=== PATIENT | male | born 1970 | race Caucasian/White ===

== ENCOUNTER 2020-11-06 03:05 | Inpatient (IN) | payer BC, OTHER ==
[2020-11-06] MEDS ORDERED: Lorazepam 2 MG/ML VIAL ONE ×3 (03:23→20:39)
[2020-11-06] MEDS ORDERED: methylPREDNISolone Sod Succ/PF 125 MG/2 ML VIAL ONE (03:32)
[2020-11-06] MEDS ORDERED: Acetaminophen 500 MG TAB ONE (03:40)
[2020-11-06] MEDS ORDERED: Ketamine 50 MG/ML (10ML VIAL) ONE (03:51)
[2020-11-06] MEDS ORDERED: Midazolam HCl 5 mg/ml Vial ONE (04:19)
[2020-11-06 04:48] LABS: Mean Corpuscular HGB CONC 31.2 g/dL (32.0-36.0); Mean Corpuscular Hemoglobin 30.1 pg (27.0-31.0); Mean Corpuscular Volume 96.6 fL (78.0-98.0); Mean Platelet Volume 9.3 fL (7.4-10.4); Platelet Count 313 thou/uL (130-400); RBC Distribution Width 12.3 % (11.5-14.5)
[2020-11-06 04:52] LABS: ALT (SGPT) 20 U/L (8-55); AST (SGOT) 23 U/L (5-34); Alcohol Less than 10 mg/dL (Less than 10); Alkaline Phosphatase 135 U/L (40-110); BUN (Urea Nitrogen) 24 mg/dL (8.9-20.6); Bilirubin, Total 0.4 mg/dL (0.2-1.2); Calc. Creatinine Clearance 0 mL/min (70-130); Calcium 8.9 mg/dL (7.8-10.44); Chloride 103 mmol/L (98-107); Potassium 4.8 mmol/L (3.5-5.1); Sodium 139 mmol/L (136-145)
[2020-11-06 04:53] LABS: Amphetamine Not Detected (NotDetected); Barbiturates Screen Not Detected (NotDetected); Benzodiazepine Screen Not Detected (NotDetected); Cocaine Metabolite Screen Not Detected (NotDetected); Methadone Not Detected (NotDetected); Methamphetamine Not Detected (NotDetected); Opiate Screen Not Detected (NotDetected); Oxycodone Screen Not Detected (NotDetected); Phencyclidine (PCP) Not Detected (NotDetected); THC/Cannabinoid Screen Not Detected (NotDetected); Tricyclic Screen Not Detected (NotDetected)
[2020-11-06 04:58] LABS: Carbon Dioxide Less than 8 mmol/L (22-29); Glucose 669 mg/dL (70-105)
[2020-11-06] MEDS ORDERED: Rocuronium Bromide 10 MG/ML (10ML VIAL) ONE (05:00)
[2020-11-06] MEDS ORDERED: Propofol 1,000 MG/100 ML VIAL IV ONE ×5 (05:02→22:56)
[2020-11-06 05:08] LABS: Band 2 % (5-11); Lymphocytes 13 % (21-51); MDiff Complete? YES; Monocytes 4 % (0-10); Neutrophil 81 % (42-75); Platelet Morphology Comment Appears Adequate; RBC Morphology Normal
[2020-11-06 05:14] LABS: Actual Bicarbonate (HCO3a) 3.5 mEq/L (22-28); Analyzer IN Cardio ER; CO2 Tension 27.7 mmHg (35.0-45.0); Carboxyhemoglobin (COHb) 0.1 gm% (0.0-3.0); Hemoglobin (Hb) 16.1 g/dL (14.0-18.0); O2 Tension (PaO2), arterial 213.4 mmHg (80.0-100.0); Potassium - ABG Lab 4.77 mmol/L (3.70-5.30)
[2020-11-06 05:15] LABS: Base Excess (BEa) -32.6 mEq/L (-2.0 to +3.0); Puncture Site LBA; pH, Arterial 6.72 (7.35-7.45)
[2020-11-06 05:16] LABS: ALV-art Gradient 179.775 mmHg (0-20)
[2020-11-06 05:22] LABS: Magnesium 2.5 mg/dL (1.6-2.6); Phosphorus 7.8 mg/dL (2.3-4.7)
[2020-11-06] MEDS ORDERED: Sodium Bicarb 50 MEQ/50 ML Abboject 8.4% SYRINGE ONE ×4 (05:26→05:31)
[2020-11-06] MEDS ORDERED: Sodium Bicarbonate 150 MEQ in Dextrose 5% in Water 850 ML IV SCH (05:45)
[2020-11-06] MEDS ORDERED: Vancomycin 1 GM/200 ML BAG ONE (06:20)
[2020-11-06] MEDS ORDERED: INSULIN REGULAR IN 0.9 % NACL 100 UNIT/100 ML BAG ONE ×5 (06:20→23:03)
[2020-11-06] MEDS ORDERED: Cefepime 2 GM VIAL ONE (06:20)
[2020-11-06] MEDS ORDERED: Insulin Regular 300 UNITS/3 ML VIAL ONE (06:20)
[2020-11-06] MEDS ORDERED: Dextrose 5 %-0.45 % NaCl 1,000 ML IV PRN (06:45)
[2020-11-06] MEDS ORDERED: Fentanyl CADD 100 ML IV SCH (06:45)
[2020-11-06] MEDS ORDERED: NS 0.9% w/ 20 MEQ KCL 1,000 ML IV PRN ×2 (06:45)
[2020-11-06] MEDS ORDERED: Electrolyte Replacement Protocol 1 EACH IVPB SCH (06:45)
[2020-11-06] MEDS ORDERED: Ondansetron PF 4 MG/2 ML Vial IVP PRN (06:45)
[2020-11-06] MEDS ORDERED: Sodium Chloride 0.9% 1,000 ML IV PRN ×4 (06:45)
[2020-11-06] MEDS ORDERED: Ventilator Sedation Protocol 1 EACH FS SCH (07:00)
[2020-11-06] MEDS ORDERED: hydrALAZINE 20 MG/ML VIAL SLOW IVP PRN (07:18)
[2020-11-06 07:27] LABS: BUN (Urea Nitrogen) 28 mg/dL (8.9-20.6); Calc. Creatinine Clearance 0 mL/min (70-130); Calcium 8.3 mg/dL (7.8-10.44); Chloride 100 mmol/L (98-107); Potassium 4.6 mmol/L (3.5-5.1); Sodium 144 mmol/L (136-145)
[2020-11-06 07:39] LABS: Carbon Dioxide Less than 8 mmol/L (22-29); Glucose 739 mg/dL (70-105); Lactic Acid 5.8 mmol/L (0.5-2.2)
[2020-11-06] MEDS ORDERED: metroNIDAZOLE 500 MG/100 ML BAG ONE (07:46)
[2020-11-06 07:49] LABS: Bacteria/HPF None Seen HPF (None Seen); Bilirubin Negative (Negative); Blood, Urine 2+ (Negative); Clarity Clear (Clear); Glucose, Urine (Dipstick) Greater than 1000 mg/dL (Negative); Ketone, Urine Greater than 150 mg/dL (Negative); Leukocyte Negative Leu/uL (Negative); Nitrite Negative (Negative); Protein, Urine (Dipstick) 30 mg/dL (Neg-Trace); RBC/HPF 0-3 HPF (0-3); Specific Gravity, Urine 1.019 (1.002-1.036); Squamous Epithelial None Seen HPF (0-3); Urobilinogen Normal mg/dL (Less than 2); WBC/HPF 0-3 HPF (0-3)
[2020-11-06] MEDS ORDERED: Enoxaparin Sodium 40 MG/0.4 ML SYRINGE ONE (08:42)
[2020-11-06] MEDS ORDERED: Dexamethasone 10 MG/ML VIAL ONE (08:42)
[2020-11-06] MEDS: Ascorbic Acid 500 mg Chewable Tablet PO SCH (08:50)
[2020-11-06] MEDS: Famotidine 20 MG TAB PO SCH ×2 (08:51→21:24)
[2020-11-06] MEDS: Dexamethasone 4 mg/ml Vial SLOW IVP SCH (08:51)
[2020-11-06] MEDS: Enoxaparin Sodium 40 MG/0.4 ML SYRINGE SC SCH (08:51)
[2020-11-06] MEDS: Zinc Sulfate 220 MG CAP PO SCH (08:51)
[2020-11-06] MEDS ORDERED: Norepinephrine 8 MG/0.9% NS 250 ML ONE ×2 (10:45→20:28)
[2020-11-06] MEDS: Norepinephrine 8 MG/0.9% NS 250 ML IVPB PRN ×2 (10:55→20:30)
[2020-11-06 11:17] LABS: Lactic Acid 2.8 mmol/L (0.5-2.2)
[2020-11-06 11:23] LABS: BUN (Urea Nitrogen) 33 mg/dL (8.9-20.6); Calc. Creatinine Clearance 0 mL/min (70-130); Calcium 7.8 mg/dL (7.8-10.44); Chloride 100 mmol/L (98-107); Sodium 141 mmol/L (136-145)
[2020-11-06 11:25] LABS: Glucose 753 mg/dL (70-105)
[2020-11-06 11:26] LABS: Glucose 723 mg/dL (70-105)
[2020-11-06 11:36] LABS: Carbon Dioxide Less than 8 mmol/L (22-29); Glucose 712 mg/dL (70-105); Glucose 791 mg/dL (70-105)
[2020-11-06 11:50] LABS: Actual Bicarbonate (HCO3a) 6.5 mEq/L (22-28); Analyzer IN Cardio ER; Base Excess (BEa) -20.6 mEq/L (-2.0 to +3.0); Calcium, Ionized (arterial) 1.13 mmol/L (1.12-1.30); Carboxyhemoglobin (COHb) 0.3 gm% (0.0-3.0); Hemoglobin (Hb) 14.6 g/dL (14.0-18.0); Potassium - ABG Lab 3.69 mmol/L (3.70-5.30)
[2020-11-06 11:55] LABS: CO2 Tension 19.9 mmHg (35.0-45.0); Puncture Site RRA; pH, Arterial 7.13 (7.35-7.45)
[2020-11-06 11:56] LABS: ALV-art Gradient 197.325 mmHg (0-20)
[2020-11-06] MEDS: Lorazepam 2 MG/ML VIAL SLOW IVP PRN ×2 (12:00→20:50)
[2020-11-06] MEDS ORDERED: fentaNYL Citrate/PF 2,000 MCG in Sodium Chloride 0.9% 60 ML IV SCH (12:15)
[2020-11-06] MEDS ORDERED: Propofol BOLUS 1,000 MG/100 ML VIAL IV PRN (12:15)
[2020-11-06] MEDS ORDERED: Fentanyl BOLUS 250 ML IVPB PRN (12:15)
[2020-11-06] MEDS ORDERED: DISCONTINUE PREVIOUS NARCOTIC PAIN MEDICATIONS AND BENZODIAZEPINES FS SCH (12:15)
[2020-11-06] MEDS ORDERED: Morphine 2 MG/ML VIAL SLOW IVP PRN (12:15)
[2020-11-06 13:21] LABS: Glucose 665 mg/dL (70-105)
[2020-11-06 13:47] LABS: Glucose 616 mg/dL (70-105)
[2020-11-06] MEDS ORDERED: Piperacillin/Tazobactam 4.5 GM in Sodium Chloride 0.9% 100 ML IVPB SCH (14:00)
[2020-11-06] MEDS ORDERED: Iopamidol-370 76% 500 ML 1 ML ONE (15:03)
[2020-11-06 15:10] LABS: Lactic Acid 1.6 mmol/L (0.5-2.2)
[2020-11-06 15:14] LABS: BUN (Urea Nitrogen) 30 mg/dL (8.9-20.6); Calc. Creatinine Clearance 0 mL/min (70-130); Calcium 7.9 mg/dL (7.8-10.44); Chloride 107 mmol/L (98-107); Glucose 520 mg/dL (70-105); Potassium 3.5 mmol/L (3.5-5.1); Sodium 144 mmol/L (136-145)
[2020-11-06 15:25] LABS: Albumin 3.3 g/dL (3.5-5.0); BUN (Urea Nitrogen) 32 mg/dL (8.9-20.6); BUN/Creatinine Ratio 10.36; Calc. Creatinine Clearance 0 mL/min (70-130); Carbon Dioxide Less than 8 mmol/L (22-29); Chloride 107 mmol/L (98-107); Glucose 519 mg/dL (70-105); Magnesium 2.3 mg/dL (1.6-2.6); Phosphorus 1.8 mg/dL (2.3-4.7); Potassium 3.5 mmol/L (3.5-5.1); Sodium 145 mmol/L (136-145)
[2020-11-06 15:26] LABS: Carbon Dioxide Less than 8 mmol/L (22-29)
[2020-11-06] MEDS ORDERED: Cefepime 1 GM VIAL ONE (17:27)
[2020-11-06] MEDS ORDERED: Potassium Phosphate 30 MMOL in Sodium Chloride 0.9% 250 ML 250 ML IVPB SCH (17:45)
[2020-11-06] MEDS: CEFEPIME HCL IN DEXTROSE 5 % 1 GM in Premix Bag 1 BAG IVPB SCH (17:55)
[2020-11-06] MEDS ORDERED: Cefepime 1 GM in Sodium Chloride 0.9% 100 ML IVPB SCH (18:00)
[2020-11-06] MEDS: Propofol 1,000 MG/100 ML VIAL IV PRN (19:35)
[2020-11-06 19:42] LABS: Lactic Acid 1.3 mmol/L (0.5-2.2)
[2020-11-06 19:57] LABS: Anion Gap 26 mmol/L (10-20); BUN (Urea Nitrogen) 30 mg/dL (8.9-20.6); BUN/Creatinine Ratio 11.24; Calc. Creatinine Clearance 0 mL/min (70-130); Calcium 7.9 mg/dL (7.8-10.44); Carbon Dioxide 10 mmol/L (22-29); Chloride 113 mmol/L (98-107); Glucose 323 mg/dL (70-105); Magnesium 2.2 mg/dL (1.6-2.6); Phosphorus Less than 1.0 mg/dL (2.3-4.7); Potassium 3.2 mmol/L (3.5-5.1); Sodium 146 mmol/L (136-145)
[2020-11-06] MEDS: HUMULIN R 100 UNITS in Sodium Chloride 0.9% 100 ML IVPB SCH ×2 (21:00→23:05)
[2020-11-06] MEDS ORDERED: Sterile Water 10 ML ONE (21:00)
[2020-11-06] MEDS ORDERED: Vecuronium 10 MG VIAL ONE (21:00)
[2020-11-06] MEDS: Cholecalciferol 1,000 UNITS (25 MCG) TAB PO SCH (21:17)
[2020-11-06] MEDS ORDERED: D5 1/2 NS w/20 mEq KCL 1,000 ML ONE (21:44)
[2020-11-06] MEDS: D5 1/2 NS w/20 mEq KCL 1,000 ML IV PRN (21:47)
[2020-11-06 23:21] LABS: Albumin 3.4 g/dL (3.5-5.0); Anion Gap 24 mmol/L (10-20); BUN (Urea Nitrogen) 30 mg/dL (8.9-20.6); BUN/Creatinine Ratio 11.11; Calc. Creatinine Clearance 50 mL/min (70-130); Calcium 8.3 mg/dL (7.8-10.44); Carbon Dioxide 14 mmol/L (22-29); Chloride 116 mmol/L (98-107); Glucose 268 mg/dL (70-105); Magnesium 2.2 mg/dL (1.6-2.6); Phosphorus 1.3 mg/dL (2.3-4.7); Potassium 3.4 mmol/L (3.5-5.1); Sodium 151 mmol/L (136-145)
[2020-11-07] MEDS: Vecuronium 10 MG VIAL IV SCH ×2 (01:06→01:08)
[2020-11-07] MEDS: Vancomycin 1.5 GRAM/300 ML BAG 1.5 GM in Premix Bag 1 BAG IVPB SCH (01:07)
[2020-11-07] MEDS: D5 1/2 NS w/20 mEq KCL 1,000 ML IV PRN ×3 (01:08→14:16)
[2020-11-07] MEDS: Propofol 1,000 MG/100 ML VIAL IV PRN ×4 (01:08→20:52)
[2020-11-07] MEDS: HUMULIN R 100 UNITS in Sodium Chloride 0.9% 100 ML IVPB SCH ×4 (01:08→13:44)
[2020-11-07 04:20] LABS: Albumin 2.8 g/dL (3.5-5.0); Anion Gap 12 mmol/L (10-20); BUN (Urea Nitrogen) 24 mg/dL (8.9-20.6); BUN/Creatinine Ratio 12.31; CRP (Inflammatory) 4.82 mg/dL (= or < 0.5); Calc. Creatinine Clearance 69 mL/min (70-130); Calcium 7.7 mg/dL (7.8-10.44); Carbon Dioxide 21 mmol/L (22-29); Chloride 117 mmol/L (98-107); Glucose 248 mg/dL (70-105); Magnesium 1.9 mg/dL (1.6-2.6); Phosphorus Less than 1.0 mg/dL (2.3-4.7); Potassium 2.8 mmol/L (3.5-5.1); Sodium 147 mmol/L (136-145)
[2020-11-07] MEDS ORDERED: Magnesium 2 GM/50 ML 2 GM in Premix Bag 1 BAG IVPB SCH ×2 (05:00→09:00)
[2020-11-07] MEDS ORDERED: Electrolyte Replacement Protocol 1 EACH IVPB SCH (05:00)
[2020-11-07 05:24] LABS: Band 3 % (5-11); Hemoglobin 13.2 g/dL (14.0-18.0); Lymphocytes 7 % (21-51); MDiff Complete? YES; Mean Corpuscular HGB CONC 34.4 g/dL (32.0-36.0); Mean Platelet Volume 8.3 fL (7.4-10.4); Monocytes 5 % (0-10); Neutrophil 85 % (42-75); Platelet Count 247 thou/uL (130-400); Platelet Morphology Comment Appears Decreased; RBC Distribution Width 12.3 % (11.5-14.5); RBC Morphology Normal; Red Blood Cell (RBC) Count 4.26 mill/uL (4.70-6.10); White Blood Cell (WBC) Count 13.5 thou/uL (4.8-10.8)
[2020-11-07] MEDS ORDERED: Potassium Phosphate 30 MMOL in Sodium Chloride 0.9% 250 ML 250 ML IVPB SCH (05:30)
[2020-11-07] MEDS: CEFEPIME HCL IN DEXTROSE 5 % 1 GM in Premix Bag 1 BAG IVPB SCH ×2 (05:40→17:48)
[2020-11-07] MEDS: Lorazepam 2 MG/ML VIAL SLOW IVP PRN (07:09)
[2020-11-07] MEDS ORDERED: Fentanyl CADD 100 ML ONE (08:04)
[2020-11-07 08:05] LABS: Albumin 2.8 g/dL (3.5-5.0); Anion Gap 13 mmol/L (10-20); BUN (Urea Nitrogen) 21 mg/dL (8.9-20.6); BUN/Creatinine Ratio 13.13; Calc. Creatinine Clearance 90 mL/min (70-130); Calcium 7.7 mg/dL (7.8-10.44); Carbon Dioxide 21 mmol/L (22-29); Chloride 118 mmol/L (98-107); Glucose 147 mg/dL (70-105); Phosphorus 1.9 mg/dL (2.3-4.7); Sodium 149 mmol/L (136-145)
[2020-11-07] MEDS: Ascorbic Acid 500 mg Chewable Tablet PO SCH (08:13)
[2020-11-07] MEDS: Zinc Sulfate 220 MG CAP PO SCH (08:13)
[2020-11-07] MEDS: Dexamethasone 4 mg/ml Vial SLOW IVP SCH (08:13)
[2020-11-07] MEDS: Famotidine 20 MG TAB PO SCH ×2 (08:13→20:51)
[2020-11-07] MEDS: Enoxaparin Sodium 40 MG/0.4 ML SYRINGE SC SCH (08:14)
[2020-11-07] MEDS ORDERED: Potassium Chloride 40 MEQ in Premix Bag 1 BAG IVPB SCH ×2 (08:15→09:30)
[2020-11-07 08:29] LABS: Actual Bicarbonate (HCO3a) 22.2 mEq/L (22-28); Base Excess (BEa) -2.1 mEq/L (-2.0 to +3.0); CO2 Tension 36.6 mmHg (35.0-45.0); Calcium, Ionized (arterial) 1.12 mmol/L (1.12-1.30); Carboxyhemoglobin (COHb) 0.8 gm% (0.0-3.0); Hemoglobin (Hb) 13.5 g/dL (14.0-18.0); O2 Tension (PaO2), arterial 88.4 mmHg (80.0-100.0); Potassium - ABG Lab 3.19 mmol/L (3.70-5.30)
[2020-11-07 08:46] LABS: Puncture Site RRA
[2020-11-07] MEDS ORDERED: fentaNYL Citrate/PF 2,000 MCG in Sodium Chloride 0.9% 60 ML IV PRN (09:10)
[2020-11-07] MEDS ORDERED: Dextrose 50% Abboject 50 ML SYRINGE ONE (10:17)
[2020-11-07 10:52] LABS: ALV-art Gradient 145.025 mmHg (0-20); Actual Bicarbonate (HCO3a) 21.8 mEq/L (22-28); Base Excess (BEa) -2.2 mEq/L (-2.0 to +3.0); CO2 Tension 35.1 mmHg (35.0-45.0); Calcium, Ionized (arterial) 1.08 mmol/L (1.12-1.30); Carboxyhemoglobin (COHb) 0.3 gm% (0.0-3.0); Hemoglobin (Hb) 13.8 g/dL (14.0-18.0); O2 Tension (PaO2), arterial 96.3 mmHg (80.0-100.0); Potassium - ABG Lab 3.98 mmol/L (3.70-5.30); Puncture Site RBA; pH, Arterial 7.41 (7.35-7.45)
[2020-11-07] MEDS ORDERED: Dextrose 50% Abboject 50 ML SYRINGE SLOW IVP SCH (11:00)
[2020-11-07] MEDS ORDERED: Dextrose 50% Abboject 50 ML SYRINGE IVP PRN (11:30)
[2020-11-07] MEDS ORDERED: Dextrose 5% in Water 1,000 ML IV PRN (11:30)
[2020-11-07 13:27] LABS: ALT (SGPT) 16 U/L (8-55); AST (SGOT) 19 U/L (5-34); Albumin 2.7 g/dL (3.5-5.0); Alkaline Phosphatase 80 U/L (40-110); Anion Gap 10 mmol/L (10-20); BUN (Urea Nitrogen) 18 mg/dL (8.9-20.6); Bilirubin, Total 0.3 mg/dL (0.2-1.2); Calc. Creatinine Clearance 96 mL/min (70-130); Calcium 7.5 mg/dL (7.8-10.44); Carbon Dioxide 24 mmol/L (22-29); Chloride 117 mmol/L (98-107); Globulin 2.4 g/dL (2.4-3.5); Glucose 264 mg/dL (70-105); Potassium 3.9 mmol/L (3.5-5.1); Protein, Total 5.1 g/dL (6.0-8.3); Sodium 147 mmol/L (136-145)
[2020-11-07] MEDS: NPH, Human Insulin Isophane 300 UNIT/3 ML VIAL SC SCH (17:49)
[2020-11-07] MEDS: Cholecalciferol 1,000 UNITS (25 MCG) TAB PO SCH (20:50)
[2020-11-08] MEDS: Vancomycin 1.5 GRAM/300 ML BAG 1.5 GM in Premix Bag 1 BAG IVPB SCH ×2 (00:07→13:22)
[2020-11-08] MEDS: Propofol 1,000 MG/100 ML VIAL IV PRN ×2 (00:08→04:18)
[2020-11-08] MEDS: NPH, Human Insulin Isophane 300 UNIT/3 ML VIAL SC SCH ×5 (00:08→22:20)
[2020-11-08 00:15] LABS: Vancomycin, Trough 5.7 ug/mL
[2020-11-08] MEDS ORDERED: Fentanyl CADD 100 ML ONE (01:03)
[2020-11-08 04:52] LABS: Band 6 % (5-11); Hemoglobin 12.8 g/dL (14.0-18.0); Hypochromia SLIGHT = 6-15 cells (100X) (0-5/hpf); Lymphocytes 8 % (21-51); MDiff Complete? YES; Mean Corpuscular HGB CONC 33.2 g/dL (32.0-36.0); Mean Corpuscular Hemoglobin 30.1 pg (27.0-31.0); Mean Corpuscular Volume 90.8 fL (78.0-98.0); Mean Platelet Volume 8.4 fL (7.4-10.4); Monocytes 4 % (0-10); Neutrophil 82 % (42-75); Platelet Count 187 thou/uL (130-400); Platelet Morphology Comment Appears Adequate; RBC Distribution Width 12.6 % (11.5-14.5); Red Blood Cell (RBC) Count 4.24 mill/uL (4.70-6.10); White Blood Cell (WBC) Count 10.6 thou/uL (4.8-10.8)
[2020-11-08 04:55] LABS: ALT (SGPT) 16 U/L (8-55); AST (SGOT) 18 U/L (5-34); Albumin 2.7 g/dL (3.5-5.0); Alkaline Phosphatase 98 U/L (40-110); Anion Gap 13 mmol/L (10-20); BUN (Urea Nitrogen) 20 mg/dL (8.9-20.6); Bilirubin, Total 0.5 mg/dL (0.2-1.2); Calc. Creatinine Clearance 129 mL/min (70-130); Calcium 7.7 mg/dL (7.8-10.44); Carbon Dioxide 23 mmol/L (22-29); Chloride 115 mmol/L (98-107); Globulin 2.7 g/dL (2.4-3.5); Glucose 299 mg/dL (70-105); Magnesium 2.3 mg/dL (1.6-2.6); Potassium 3.9 mmol/L (3.5-5.1); Protein, Total 5.4 g/dL (6.0-8.3); Sodium 147 mmol/L (136-145)
[2020-11-08] MEDS: HumaLOG 300 UNITS/3 ML VIAL SC PRN ×5 (05:20→22:23)
[2020-11-08] MEDS: CEFEPIME HCL IN DEXTROSE 5 % 1 GM in Premix Bag 1 BAG IVPB SCH ×2 (05:21→17:02)
[2020-11-08 08:31] LABS: Actual Bicarbonate (HCO3a) 23.9 mEq/L (22-28); Base Excess (BEa) -0.4 mEq/L (-2.0 to +3.0); CO2 Tension 38.2 mmHg (35.0-45.0); Calcium, Ionized (arterial) 1.08 mmol/L (1.12-1.30); Carboxyhemoglobin (COHb) 0.7 gm% (0.0-3.0); Hemoglobin (Hb) 13.6 g/dL (14.0-18.0); O2 Tension (PaO2), arterial 101.7 mmHg (80.0-100.0); Potassium - ABG Lab 3.74 mmol/L (3.70-5.30); pH, Arterial 7.42 (7.35-7.45)
[2020-11-08 08:32] LABS: Puncture Site RRA
[2020-11-08] MEDS: Enoxaparin Sodium 40 MG/0.4 ML SYRINGE SC SCH (08:39)
[2020-11-08] MEDS: Famotidine 20 MG TAB PO SCH ×2 (08:39→22:15)
[2020-11-08] MEDS: Zinc Sulfate 220 MG CAP PO SCH (08:39)
[2020-11-08] MEDS: Dexamethasone 4 mg/ml Vial SLOW IVP SCH (08:39)
[2020-11-08] MEDS: Ascorbic Acid 500 mg Chewable Tablet PO SCH (08:39)
[2020-11-08] MEDS ORDERED: Sodium Chloride 0.45% 1,000 ML IV SCH (08:45)
[2020-11-08] MEDS: Cholecalciferol 1,000 UNITS (25 MCG) TAB PO SCH (22:15)
[2020-11-09] MEDS: Acetaminophen 325 MG TAB PO PRN ×2 (00:37→08:48)
[2020-11-09] MEDS: Vancomycin 1.5 GRAM/300 ML BAG 1.5 GM in Premix Bag 1 BAG IVPB SCH ×2 (00:38→14:00)
[2020-11-09] MEDS: HumaLOG 300 UNITS/3 ML VIAL SC PRN ×3 (06:30→16:48)
[2020-11-09 06:53] LABS: Hemoglobin 12.9 g/dL (14.0-18.0); Mean Corpuscular HGB CONC 33.8 g/dL (32.0-36.0); Mean Corpuscular Hemoglobin 30.8 pg (27.0-31.0); Mean Corpuscular Volume 91.1 fL (78.0-98.0); Mean Platelet Volume 8.3 fL (7.4-10.4); Platelet Count 167 thou/uL (130-400); RBC Distribution Width 12.3 % (11.5-14.5); Red Blood Cell (RBC) Count 4.19 mill/uL (4.70-6.10); White Blood Cell (WBC) Count 8.4 thou/uL (4.8-10.8)
[2020-11-09 07:15] LABS: ALT (SGPT) 15 U/L (8-55); AST (SGOT) 15 U/L (5-34); Albumin 2.7 g/dL (3.5-5.0); Alkaline Phosphatase 106 U/L (40-110); Anion Gap 11 mmol/L (10-20); BUN (Urea Nitrogen) 18 mg/dL (8.9-20.6); Bilirubin, Total 0.8 mg/dL (0.2-1.2); Calc. Creatinine Clearance 194 mL/min (70-130); Calcium 7.8 mg/dL (7.8-10.44); Carbon Dioxide 24 mmol/L (22-29); Chloride 110 mmol/L (98-107); Globulin 2.8 g/dL (2.4-3.5); Glucose 207 mg/dL (70-105); Magnesium 1.9 mg/dL (1.6-2.6); Phosphorus 3.1 mg/dL (2.3-4.7); Potassium 3.9 mmol/L (3.5-5.1); Protein, Total 5.5 g/dL (6.0-8.3); Sodium 141 mmol/L (136-145)
[2020-11-09 07:28] LABS: Band 11 % (5-11); Lymphocytes 9 % (21-51); MDiff Complete? YES; Monocytes 4 % (0-10); Neutrophil 76 % (42-75); Platelet Morphology Comment Appears Adequate; RBC Morphology Normal
[2020-11-09] MEDS ORDERED: Magnesium 2 GM/50 ML 2 GM in Premix Bag 1 BAG IVPB SCH (08:00)
[2020-11-09] MEDS: CEFEPIME HCL IN DEXTROSE 5 % 1 GM in Premix Bag 1 BAG IVPB SCH ×2 (08:02→21:41)
[2020-11-09] MEDS: NPH, Human Insulin Isophane 300 UNIT/3 ML VIAL SC SCH (08:07)
[2020-11-09] MEDS ORDERED: hydrALAZINE 20 MG/ML VIAL SLOW IVP SCH (08:45)
[2020-11-09] MEDS ORDERED: Amlodipine 5 MG TAB PO SCH (08:45)
[2020-11-09] MEDS: Enoxaparin Sodium 40 MG/0.4 ML SYRINGE SC SCH (08:48)
[2020-11-09] MEDS: Ascorbic Acid 500 mg Chewable Tablet PO SCH (08:49)
[2020-11-09] MEDS: Dexamethasone 4 mg/ml Vial SLOW IVP SCH (08:49)
[2020-11-09] MEDS: Famotidine 20 MG TAB PO SCH ×2 (08:49→21:42)
[2020-11-09] MEDS: Zinc Sulfate 220 MG CAP PO SCH (08:49)
[2020-11-09] MEDS ORDERED: Lisinopril 5 MG TAB PO SCH (09:00)
[2020-11-09] MEDS ORDERED: Lisinopril 10 MG TAB PO SCH (09:00)
[2020-11-09] MEDS ORDERED: Amlodipine 10 MG TAB PO SCH (09:00)
[2020-11-09] MEDS: Carvedilol 6.25 MG TAB PO SCH ×2 (09:53→16:48)
[2020-11-09] MEDS: Hydrochlorothiazide 25 MG TAB PO SCH (09:53)
[2020-11-09] MEDS: HumaLOG 300 UNITS/3 ML VIAL SC SCH ×2 (11:50→16:47)
[2020-11-09] MEDS: Amlodipine 5 MG TAB PO SCH ×4 (11:51→12:26)
[2020-11-09 12:34] LABS: Vancomycin, Trough 10.1 ug/mL
[2020-11-09] MEDS: VANCOMYCIN 1.75 GM/350 ML BAG 1.75 GM in Premix Bag 1 BAG IVPB SCH (14:14)
[2020-11-09] MEDS: Benzonatate 100 MG CAP PO PRN (21:42)
[2020-11-09] MEDS: Cholecalciferol 1,000 UNITS (25 MCG) TAB PO SCH (21:42)
[2020-11-09] MEDS: Lantus 1000 UNITS/10 ML VIAL SC SCH (22:44)
[2020-11-10] MEDS: VANCOMYCIN 1.75 GM/350 ML BAG 1.75 GM in Premix Bag 1 BAG IVPB SCH ×2 (00:53→13:08)
[2020-11-10] MEDS: Guaifenesin DM 100-10/5 ML UDCUP PO PRN ×4 (06:41→19:28)
[2020-11-10 07:05] LABS: #Lymphocytes 1.5 thou/uL (1.20-3.40); #Monocytes 0.9 thou/uL (0.11-0.59); #Neutrophils 10.4 thou/uL (1.40-6.50); %Basophils 0.1 % (0.0-1.0); %Eosinophils 0.1 % (0.0-10.0); %Lymphocytes 11.7 % (21.0-51.0); %Monocytes 7.1 % (0.0-10.0); Hemoglobin 14.4 g/dL (14.0-18.0); Mean Corpuscular HGB CONC 33.8 g/dL (32.0-36.0); Mean Corpuscular Hemoglobin 30.7 pg (27.0-31.0); Mean Corpuscular Volume 90.8 fL (78.0-98.0); Platelet Count 180 thou/uL (130-400); RBC Distribution Width 11.9 % (11.5-14.5); White Blood Cell (WBC) Count 12.9 thou/uL (4.8-10.8)
[2020-11-10 07:19] LABS: Phosphorus 2.9 mg/dL (2.3-4.7)
[2020-11-10 07:26] LABS: ALT (SGPT) 17 U/L (8-55); AST (SGOT) 17 U/L (5-34); Albumin 3.1 g/dL (3.5-5.0); Alkaline Phosphatase 135 U/L (40-110); Anion Gap 17 mmol/L (10-20); BUN (Urea Nitrogen) 14 mg/dL (8.9-20.6); Calc. Creatinine Clearance 200 mL/min (70-130); Calcium 8.5 mg/dL (7.8-10.44); Carbon Dioxide 22 mmol/L (22-29); Chloride 102 mmol/L (98-107); Globulin 3.2 g/dL (2.4-3.5); Glucose 237 mg/dL (70-105); Magnesium 1.8 mg/dL (1.6-2.6); Potassium 3.5 mmol/L (3.5-5.1); Protein, Total 6.3 g/dL (6.0-8.3); Sodium 137 mmol/L (136-145)
[2020-11-10] MEDS: Hydrochlorothiazide 25 MG TAB PO SCH (09:29)
[2020-11-10] MEDS: Enoxaparin Sodium 40 MG/0.4 ML SYRINGE SC SCH (09:29)
[2020-11-10] MEDS: CEFEPIME HCL IN DEXTROSE 5 % 1 GM in Premix Bag 1 BAG IVPB SCH ×2 (09:29→22:25)
[2020-11-10] MEDS: Ascorbic Acid 500 mg Chewable Tablet PO SCH (09:29)
[2020-11-10] MEDS: Carvedilol 6.25 MG TAB PO SCH ×2 (09:30→17:29)
[2020-11-10] MEDS: Amlodipine 10 MG TAB PO SCH (09:30)
[2020-11-10] MEDS: Dexamethasone 4 mg/ml Vial SLOW IVP SCH (09:30)
[2020-11-10] MEDS: Famotidine 20 MG TAB PO SCH ×2 (09:30→22:25)
[2020-11-10] MEDS: Zinc Sulfate 220 MG CAP PO SCH (09:30)
[2020-11-10] MEDS: HumaLOG 300 UNITS/3 ML VIAL SC SCH ×3 (09:31→17:29)
[2020-11-10] MEDS ORDERED: Magnesium 2 GM/50 ML 2 GM in Premix Bag 1 BAG IVPB SCH (10:30)
[2020-11-10] MEDS ORDERED: Potassium Chloride 20 MEQ TAB PO SCH (10:30)
[2020-11-10] MEDS: Acetaminophen 325 MG TAB PO PRN ×2 (12:16→19:47)
[2020-11-10] MEDS: HumaLOG 300 UNITS/3 ML VIAL SC PRN ×2 (12:17→17:29)
[2020-11-10] MEDS: Benzonatate 100 MG CAP PO PRN ×2 (12:17→22:44)
[2020-11-10] MEDS: Cholecalciferol 1,000 UNITS (25 MCG) TAB PO SCH (22:25)
[2020-11-10] MEDS: Lantus 1000 UNITS/10 ML VIAL SC SCH (22:28)
[2020-11-11 01:43] LABS: Vancomycin, Trough 7.1 ug/mL
[2020-11-11] MEDS: VANCOMYCIN 1.75 GM/350 ML BAG 1.75 GM in Premix Bag 1 BAG IVPB SCH ×2 (01:53→12:05)
[2020-11-11 05:26] LABS: #Lymphocytes 1.4 thou/uL (1.20-3.40); #Monocytes 1.1 thou/uL (0.11-0.59); #Neutrophils 8.3 thou/uL (1.40-6.50); %Basophils 0.2 % (0.0-1.0); %Eosinophils 0.2 % (0.0-10.0); %Lymphocytes 13.1 % (21.0-51.0); %Monocytes 10.2 % (0.0-10.0); %Neutrophils 76.3 % (42.0-75.0); Hemoglobin 13.9 g/dL (14.0-18.0); Mean Corpuscular HGB CONC 33.8 g/dL (32.0-36.0); Mean Corpuscular Hemoglobin 30.6 pg (27.0-31.0); Mean Corpuscular Volume 90.5 fL (78.0-98.0); Platelet Count 169 thou/uL (130-400); RBC Distribution Width 11.8 % (11.5-14.5); Red Blood Cell (RBC) Count 4.55 mill/uL (4.70-6.10); White Blood Cell (WBC) Count 10.9 thou/uL (4.8-10.8)
[2020-11-11 05:54] LABS: ALT (SGPT) 15 U/L (8-55); AST (SGOT) 14 U/L (5-34); Albumin 2.9 g/dL (3.5-5.0); Alkaline Phosphatase 123 U/L (40-110); Anion Gap 19 mmol/L (10-20); BUN (Urea Nitrogen) 13 mg/dL (8.9-20.6); Bilirubin, Total 0.7 mg/dL (0.2-1.2); Calc. Creatinine Clearance 200 mL/min (70-130); Calcium 8.4 mg/dL (7.8-10.44); Carbon Dioxide 20 mmol/L (22-29); Chloride 101 mmol/L (98-107); Globulin 3.4 g/dL (2.4-3.5); Glucose 209 mg/dL (70-105); Potassium 3.8 mmol/L (3.5-5.1); Protein, Total 6.3 g/dL (6.0-8.3); Sodium 136 mmol/L (136-145)
[2020-11-11] MEDS: Enoxaparin Sodium 40 MG/0.4 ML SYRINGE SC SCH (08:55)
[2020-11-11] MEDS: CEFEPIME HCL IN DEXTROSE 5 % 1 GM in Premix Bag 1 BAG IVPB SCH (08:55)
[2020-11-11] MEDS: Hydrochlorothiazide 25 MG TAB PO SCH (08:56)
[2020-11-11] MEDS: Zinc Sulfate 220 MG CAP PO SCH (08:56)
[2020-11-11] MEDS: Famotidine 20 MG TAB PO SCH ×2 (08:56→21:13)
[2020-11-11] MEDS: Carvedilol 6.25 MG TAB PO SCH ×2 (08:56→16:55)
[2020-11-11] MEDS: Dexamethasone 4 MG TAB PO SCH (08:56)
[2020-11-11] MEDS: Ascorbic Acid 500 mg Chewable Tablet PO SCH (08:56)
[2020-11-11] MEDS: Amlodipine 10 MG TAB PO SCH (08:56)
[2020-11-11] MEDS: Benzonatate 100 MG CAP PO PRN ×2 (08:57→16:54)
[2020-11-11] MEDS: HumaLOG 300 UNITS/3 ML VIAL SC SCH ×3 (08:57→16:55)
[2020-11-11] MEDS: Acetaminophen 325 MG TAB PO PRN ×3 (09:20→21:34)
[2020-11-11] MEDS: HumaLOG 300 UNITS/3 ML VIAL SC PRN ×3 (12:06→21:21)
[2020-11-11] MEDS: Chloraseptic Spray 180 ml Bottle PO PRN (16:58)
[2020-11-11] MEDS: Guaifenesin DM 100-10/5 ML UDCUP PO PRN ×2 (17:50→21:21)
[2020-11-11] MEDS: Lantus 1000 UNITS/10 ML VIAL SC SCH (21:13)
[2020-11-11] MEDS: Cholecalciferol 1,000 UNITS (25 MCG) TAB PO SCH (21:13)
[2020-11-11] MEDS: Ammonium Lactate 12% Lotion 225 GM BOT TOP SCH ×2 (21:26→21:33)
[2020-11-12] MEDS: hydrALAZINE 25 MG TAB PO PRN ×2 (00:22→08:46)
[2020-11-12] MEDS: Guaifenesin DM 100-10/5 ML UDCUP PO PRN ×3 (02:15→20:39)
[2020-11-12] MEDS: HumaLOG 300 UNITS/3 ML VIAL SC PRN ×4 (05:24→20:36)
[2020-11-12] MEDS: Benzonatate 100 MG CAP PO PRN ×2 (05:24→16:14)
[2020-11-12] MEDS: Acetaminophen 325 MG TAB PO PRN ×3 (05:24→18:16)
[2020-11-12] MEDS: Enoxaparin Sodium 40 MG/0.4 ML SYRINGE SC SCH (08:45)
[2020-11-12] MEDS: Zinc Sulfate 220 MG CAP PO SCH (08:46)
[2020-11-12] MEDS: Carvedilol 6.25 MG TAB PO SCH ×2 (08:46→16:23)
[2020-11-12] MEDS: Amlodipine 10 MG TAB PO SCH (08:46)
[2020-11-12] MEDS: Hydrochlorothiazide 25 MG TAB PO SCH (08:46)
[2020-11-12] MEDS: Ascorbic Acid 500 mg Chewable Tablet PO SCH (08:46)
[2020-11-12] MEDS: Dexamethasone 4 MG TAB PO SCH (08:47)
[2020-11-12] MEDS: Famotidine 20 MG TAB PO SCH ×2 (08:47→20:32)
[2020-11-12] MEDS: Ammonium Lactate 12% Lotion 225 GM BOT TOP SCH ×2 (08:47→20:33)
[2020-11-12] MEDS: HumaLOG 300 UNITS/3 ML VIAL SC SCH ×3 (08:48→16:24)
[2020-11-12] MEDS ORDERED: Carvedilol 6.25 MG TAB PO SCH ×2 (12:54→13:00)
[2020-11-12] MEDS ORDERED: Fluticasone Propionate Nasal Spray 16 gm Bottle NASAL SCH (14:45)
[2020-11-12] MEDS ORDERED: Zolpidem Tartrate 5 MG TAB PO PRN (18:37)
[2020-11-12] MEDS: Cholecalciferol 1,000 UNITS (25 MCG) TAB PO SCH (20:32)
[2020-11-12] MEDS: Chloraseptic Spray 180 ml Bottle PO PRN (20:34)
[2020-11-12] MEDS ORDERED: Lantus 1000 UNITS/10 ML VIAL SC SCH (21:00)
[2020-11-13] MEDS: Acetaminophen 325 MG TAB PO PRN ×3 (01:23→09:58)
[2020-11-13] MEDS: Benzonatate 100 MG CAP PO PRN ×2 (01:23→11:48)
[2020-11-13] MEDS: Guaifenesin DM 100-10/5 ML UDCUP PO PRN ×2 (05:08→11:48)
[2020-11-13] MEDS: HumaLOG 300 UNITS/3 ML VIAL SC PRN (05:11)
[2020-11-13 08:22] LABS: Hemoglobin 14.9 g/dL (14.0-18.0); Mean Corpuscular HGB CONC 33.7 g/dL (32.0-36.0); Mean Corpuscular Hemoglobin 30.6 pg (27.0-31.0); Mean Platelet Volume 8.1 fL (7.4-10.4); Platelet Count 276 thou/uL (130-400); RBC Distribution Width 11.9 % (11.5-14.5); Red Blood Cell (RBC) Count 4.87 mill/uL (4.70-6.10)
[2020-11-13 08:46] LABS: Anion Gap 15 mmol/L (10-20); BUN (Urea Nitrogen) 10 mg/dL (8.9-20.6); Calc. Creatinine Clearance 210 mL/min (70-130); Carbon Dioxide 25 mmol/L (22-29); Chloride 101 mmol/L (98-107); Glucose 111 mg/dL (70-105); Sodium 138 mmol/L (136-145)
[2020-11-13 08:52] LABS: Potassium 2.9 mmol/L (3.5-5.1)
[2020-11-13] MEDS ORDERED: Fluticasone Propionate Nasal Spray 16 gm Bottle NASAL SCH (09:00)
[2020-11-13] MEDS: Ascorbic Acid 500 mg Chewable Tablet PO SCH (09:44)
[2020-11-13] MEDS: Amlodipine 10 MG TAB PO SCH (09:44)
[2020-11-13] MEDS: Famotidine 20 MG TAB PO SCH (09:44)
[2020-11-13] MEDS: Hydrochlorothiazide 25 MG TAB PO SCH (09:44)
[2020-11-13] MEDS: Zinc Sulfate 220 MG CAP PO SCH (09:44)
[2020-11-13] MEDS: Carvedilol 6.25 MG TAB PO SCH (09:44)
[2020-11-13] MEDS: HumaLOG 300 UNITS/3 ML VIAL SC SCH ×2 (09:45→12:30)
[2020-11-13] MEDS: Dexamethasone 4 MG TAB PO SCH (09:45)
[2020-11-13] MEDS: Enoxaparin Sodium 40 MG/0.4 ML SYRINGE SC SCH (09:46)
[2020-11-13] MEDS: Ammonium Lactate 12% Lotion 225 GM BOT TOP SCH (09:46)
[2020-11-13 09:50] LABS: Band 3 % (5-11); Eosinophils 1 % (0-10); Lymphocytes 28 % (21-51); MDiff Complete? YES; Monocytes 10 % (0-10); Neutrophil 58 % (42-75); RBC Morphology Normal
[2020-11-13] MEDS ORDERED: Potassium Chloride 20 MEQ TAB PO SCH ×2 (10:00→13:00)
[2020-11-13 13:15] VITALS: BMI 36.6
[2020-11-13 15:30] LABS: Potassium 4.7 mmol/L (3.5-5.1)
[2020-11-13 17:08] VITALS: BP 125/88; TEMP 97
== END 2020-11-13 17:20 | disposition home or self-care (01) | DRG 208 ==
LOC: ERS 03:05 → ERHOLD 06:44 → CCU 06:44 → T4-B 11-09 18:50
PROVIDERS: ADMIT Internal Medicine; ATTEND Internal Medicine
PROC: 0T9B70Z Drainage of Bladder with Drainage Device, Via Natural or Artificial Opening (ICD-10-PCS; principal; 2020-11-06)
PROC: 02HV33Z Insertion of Infusion Device into Superior Vena Cava, Percutaneous Approach (ICD-10-PCS; 2020-11-06)
PROC: 0BH17EZ Insertion of Endotracheal Airway into Trachea, Via Natural or Artificial Opening (ICD-10-PCS; 2020-11-06)
PROC: 5A1945Z Respiratory Ventilation, 24-96 Consecutive Hours (ICD-10-PCS; 2020-11-06)
PROC: 8E0ZXY6 Isolation (ICD-10-PCS; 2020-11-06)
DX: U07.1 COVID-19 (principal); E11.10 Type 2 diabetes mellitus with ketoacidosis without coma; J12.82 Pneumonia due to coronavirus disease 2019; J96.01 Acute respiratory failure with hypoxia; N17.9 Acute kidney failure, unspecified; E87.0 Hyperosmolality and hypernatremia; G93.49 Other encephalopathy; I10 Essential (primary) hypertension; E66.9 Obesity, unspecified; R53.81 Other malaise; E86.0 Dehydration; E87.6 Hypokalemia; E83.39 Other disorders of phosphorus metabolism; Z68.36 Body mass index [BMI] 36.0-36.9, adult
CPT/HCPCS: 31500; 36415; 36416; 36556; 36600; 51702; 70496; 71045; 80048; 80053; 80069; 80202; 80306; 80307; 81003; 81015; 82010; 82550; 82728; 82805; 83605; 83735; 84100; 84484; 85007; 85025; 85027; 85379; 86140; 87040; 93005; 94002; 94003; 96365; 96375; 99292; J0360; J0692; J1100; J1650; J1815; J2060; J2250; J2704; J2930; J3010; J3370; J3475; J3480; J3490; J7042; J7050; J7070; J8540; Q9967

== ENCOUNTER 2021-09-06 16:19 | Emergency (ER) | payer BC ==
[2021-09-06 17:41] LABS: #Basophils 0.1 thou/uL (0.0-0.2); #Eosinphils 0.1 thou/uL (0.0-0.7); #Lymphocytes 1.8 thou/uL (1.20-3.40); #Monocytes 0.3 thou/uL (0.11-0.59); #Neutrophils 1.9 thou/uL (1.40-6.50); %Basophils 1.3 % (0.0-1.0); %Eosinophils 1.5 % (0.0-10.0); %Lymphocytes 44.9 % (21.0-51.0); %Monocytes 6.4 % (0.0-10.0); %Neutrophils 45.8 % (42.0-75.0); Hemoglobin 15.6 g/dL (14.0-18.0); Mean Corpuscular HGB CONC 33.3 g/dL (32.0-36.0); Mean Corpuscular Hemoglobin 31.2 pg (27.0-31.0); Mean Corpuscular Volume 93.9 fL (78.0-98.0); Mean Platelet Volume 7.6 fL (7.4-10.4); Platelet Count 259 thou/uL (130-400); RBC Distribution Width 12.1 % (11.5-14.5); Red Blood Cell (RBC) Count 5.01 mill/uL (4.70-6.10)
[2021-09-06 18:05] LABS: ALT (SGPT) 23 U/L (8-55); AST (SGOT) 18 U/L (5-34); Albumin 4.2 g/dL (3.5-5.0); Alkaline Phosphatase 93 U/L (40-110); Anion Gap 16 mmol/L (10-20); BUN (Urea Nitrogen) 11 mg/dL (8.4-25.7); Bilirubin, Total 0.4 mg/dL (0.2-1.2); Calc. Creatinine Clearance 0 mL/min (70-130); Calcium 9.2 mg/dL (7.8-10.44); Carbon Dioxide 26 mmol/L (22-29); Chloride 99 mmol/L (98-107); Globulin 3.4 g/dL (2.4-3.5); Glucose 242 mg/dL (70-105); Lipase 61 U/L (8-78); Potassium 3.3 mmol/L (3.5-5.1); Protein, Total 7.6 g/dL (6.0-8.3); Sodium 138 mmol/L (136-145)
== END 2021-09-06 19:20 | disposition home or self-care (01) ==
LOC: ERS 16:19
DX: U07.1 COVID-19 (principal); R53.1 Weakness; I10 Essential (primary) hypertension; E11.9 Type 2 diabetes mellitus without complications; Z79.84 Long term (current) use of oral hypoglycemic drugs; Z79.4 Long term (current) use of insulin; Z79.899 Other long term (current) drug therapy
CPT/HCPCS: 36415; 71045; 80053; 82010; 83690; 85025; 93005; 96360

== ENCOUNTER 2023-04-07 10:47 | Emergency (ER) | payer SELFPAY ==
[2023-04-07 12:28] LABS: #Monocytes 0.3 thou/uL (0.11-0.59); #Neutrophils 7.6 thou/uL (1.40-6.50); %Basophils 0.1 % (0.0-1.0); %Lymphocytes 3.6 % (21.0-51.0); %Monocytes 3.8 % (0.0-10.0); %Neutrophils 92.3 % (42.0-75.0); Hematocrit 48.2 % (42.0-52.0); Hemoglobin 16.6 g/dL (14.0-18.0); Mean Corpuscular HGB CONC 34.4 g/dL (32.0-36.0); Mean Corpuscular Hemoglobin 29.5 pg (27.0-31.0); Mean Corpuscular Volume 85.8 fl (78.0-98.0); Mean Platelet Volume 9.8 fL (7.4-10.4); Platelet Count 215 10x3/uL (130-400); RBC Distribution Width 12.6 % (11.5-14.5); Red Blood Cell (RBC) Count 5.62 mill/uL (4.70-6.10); White Blood Cell (WBC) Count 8.2 10x3/uL (4.8-10.8)
[2023-04-07 12:39] LABS: ALT (SGPT) 23 U/L (8-55); AST (SGOT) 26 U/L (5-34); Albumin 4.2 g/dL (3.5-5.0); Alkaline Phosphatase 94 U/L (40-110); Anion Gap 17 mmol/L (10-20); BUN (Urea Nitrogen) 20 mg/dL (8.4-25.7); Bilirubin, Total 0.4 mg/dL (0.2-1.2); Calc. Creatinine Clearance 0 mL/min (70-130); Calcium 8.5 mg/dL (7.8-10.44); Carbon Dioxide 20 mmol/L (22-29); Chloride 102 mmol/L (98-107); Estimated GFR 89; Globulin 3.5 g/dL (2.4-3.5); Glucose 198 mg/dL (70-105); Potassium 3.6 mmol/L (3.5-5.1); Protein, Total 7.7 g/dL (6.0-8.3); Sodium 135 mmol/L (136-145)
[2023-04-07 13:04] LABS: SARS-CoV-2 NAA Rapid Test Not Detected (NotDetected)
[2023-04-07 13:12] LABS: Troponin I 0.015 ng/mL (< 0.028)
[2023-04-07] MEDS ORDERED: Ketorolac Tromethamine 30 MG (1 mL) VIAL ONE (13:31)
[2023-04-07] MEDS ORDERED: Acetaminophen 500 MG TAB ONE (13:31)
[2023-04-07 14:01] LABS: Bacteria/HPF None Seen HPF (None Seen); Bilirubin Negative (Negative); Blood, Urine Negative (Negative); CAUTI Indications for Culture Fever or rigors; Clarity Clear (Clear); Glucose, Urine (Dipstick) Greater than 1000 mg/dL (Negative); Ketone, Urine Greater than 150 mg/dL (Negative); Leukocyte Negative Leu/uL (Negative); Nitrite Negative (Negative); Protein, Urine (Dipstick) 30 mg/dL (Neg-Trace); RBC/HPF None Seen HPF (0-3); Specific Gravity, Urine 1.027 (1.002-1.036); Squamous Epithelial None Seen HPF (0-3); Urobilinogen Normal mg/dL (Less than 2); WBC/HPF 0-3 HPF (0-3); pH, Urine 5.5 (5.0-9.0)
[2023-04-07 14:02] LABS: Urine Culture Reflex No No
== END 2023-04-07 15:20 | disposition home or self-care (01) ==
LOC: ERS 10:47
DX: J10.1 Influenza due to other identified influenza virus with other respiratory manifestations (principal); E86.0 Dehydration; R00.0 Tachycardia, unspecified; E11.9 Type 2 diabetes mellitus without complications; I10 Essential (primary) hypertension
CPT/HCPCS: 71045; 80053; 81001; 82010; 83605; 84484; 85025; 87040; 93005; 96361; 96374; J1885

== ENCOUNTER 2023-04-14 09:55 | Inpatient (IN) | payer SELFPAY ==
[~2023-04-14 09:55] MED LIST: Iopamidol-370 76% 500 ML MDV (1 ML CHARGE) ONE
[2023-04-14 10:31] LABS: #Monocytes 0.5 thou/uL (0.11-0.59); #Neutrophils 6.8 thou/uL (1.40-6.50); %Basophils 0.1 % (0.0-1.0); %Eosinophils 0.1 % (0.0-10.0); %Lymphocytes 6.9 % (21.0-51.0); %Monocytes 6.8 % (0.0-10.0); %Neutrophils 85.6 % (42.0-75.0); Hematocrit 42.5 % (42.0-52.0); Hemoglobin 14.7 g/dL (14.0-18.0); Mean Corpuscular HGB CONC 34.6 g/dL (32.0-36.0); Mean Corpuscular Hemoglobin 29.6 pg (27.0-31.0); Mean Corpuscular Volume 85.5 fl (78.0-98.0); Mean Platelet Volume 10.8 fL (7.4-10.4); Platelet Count 137 10x3/uL (130-400); RBC Distribution Width 12.9 % (11.5-14.5); Red Blood Cell (RBC) Count 4.97 mill/uL (4.70-6.10); White Blood Cell (WBC) Count 7.9 10x3/uL (4.8-10.8)
[2023-04-14] MEDS ORDERED: Ketorolac Tromethamine 30 MG (1 mL) VIAL ONE (10:31)
[2023-04-14] MEDS ORDERED: Acetaminophen 500 MG TAB ONE (10:31)
[2023-04-14 10:59] LABS: ALT (SGPT) 29 U/L (8-55); AST (SGOT) 31 U/L (5-34); Albumin 3.3 g/dL (3.5-5.0); Alkaline Phosphatase 81 U/L (40-110); Anion Gap 18 mmol/L (10-20); BUN (Urea Nitrogen) 10 mg/dL (8.4-25.7); Bilirubin, Total 1.4 mg/dL (0.2-1.2); Calc. Creatinine Clearance 0 mL/min (70-130); Carbon Dioxide 19 mmol/L (22-29); Chloride 105 mmol/L (98-107); Estimated GFR 110; Globulin 3.7 g/dL (2.4-3.5); Glucose 243 mg/dL (70-105); Potassium 3.2 mmol/L (3.5-5.1); Sodium 139 mmol/L (136-145)
[2023-04-14 11:03] LABS: Troponin I 0.017 ng/mL (< 0.028)
[2023-04-14 11:12] LABS: Actual Bicarbonate (HCO3v) 21.1 mEq/L (22-28); Analyzer IN Cardio ER; Base Excess -2.2 mEq/L (-2.0 to +3.0); Chloride (VBG) 104 mmol/L (98-106); Hematocrit-VBG 44 % (42.0-52.0); Hemoglobin (Hb) 14.8 g/dL (13.1-17.2); Potassium (VBG) 3.15 mmol/L (3.70-5.30); Sodium 140 mmol/L (133-146); pH (venous) 7.432 (7.32-7.43)
[2023-04-14] MEDS ORDERED: Ipratropium/Albuterol 3 ML NEB ONE (11:18)
[2023-04-14 11:56] LABS: Magnesium 1.9 mg/dL (1.6-2.6)
[2023-04-14] MEDS ORDERED: Sodium Chloride 0.9% 100 ML ONE (11:59)
[2023-04-14] MEDS ORDERED: cefTRIAXone (ROCEPHIN) 2 GM VIAL ONE (11:59)
[2023-04-14] MEDS ORDERED: Azithromycin 500 MG VIAL ONE (12:41)
[2023-04-14] MEDS ORDERED: Enoxaparin 60 MG (0.6 mL) SYRINGE ONE (12:41)
[2023-04-14 13:56] LABS: Bacteria/HPF None Seen HPF (None Seen); Bilirubin Negative (Negative); Blood, Urine Trace (Negative); CAUTI Indications for Culture Pelvic or flank pain; Clarity Clear (Clear); Glucose, Urine (Dipstick) Greater than 1000 mg/dL (Negative); Ketone, Urine 150 mg/dL (Negative); Leukocyte Negative Leu/uL (Negative); Nitrite Negative (Negative); Protein, Urine (Dipstick) 70 mg/dL (Neg-Trace); RBC/HPF 0-3 HPF (0-3); Squamous Epithelial None Seen HPF (0-3); WBC/HPF 0-3 HPF (0-3)
[2023-04-14 14:01] LABS: Specific Gravity, Urine 1.049 (1.002-1.036)
[2023-04-14 14:02] LABS: Urine Culture Reflex No No
[2023-04-14] MEDS ORDERED: Ondansetron PF 4 MG/2 ML Vial IVP PRN (14:09)
[2023-04-14] MEDS ORDERED: Ondansetron ODT 4 MG TAB PO PRN (14:09)
[2023-04-14] MEDS ORDERED: Senokot S 8.6-50 MG TAB PO PRN (14:09)
[2023-04-14] MEDS ORDERED: Calcium Carbonate 500 MG ChewTAB PO PRN (14:09)
[2023-04-14] MEDS ORDERED: Dextrose 50% Abboject 50 ML SYRINGE SLOW IVP PRN (14:19)
[2023-04-14] MEDS ORDERED: Dextrose 5% in Water 1,000 ML IV PRN (14:19)
[2023-04-14] MEDS ORDERED: Glucagon 1 MG/ML KIT IM PRN (14:19)
[2023-04-14] MEDS ORDERED: HumaLOG 300 UNITS/3 ML VIAL SC PRN (14:19)
[2023-04-14] MEDS ORDERED: Potassium Chloride 20 MEQ TAB ONE (14:23)
[2023-04-14] MEDS ORDERED: guaiFENesin/DM ER PO SCH (14:30)
[2023-04-14 14:39] LABS: SARS-CoV-2 NAA Rapid Test Not Detected (NotDetected)
[2023-04-14 15:29] LABS: INR-International Normal Ratio 1.5; Prothrombin Time 18.1 sec (12.0-14.7)
[2023-04-14 15:30] LABS: PTT 33.9 sec (22.9-36.1)
[2023-04-14] MEDS ORDERED: Dexamethasone 10 MG/ML VIAL SLOW IVP SCH (15:45)
[2023-04-14] MEDS: Sodium Chloride 0.9% 1,000 ML IV SCH (17:10)
[2023-04-14] MEDS: Carvedilol 25 MG TAB PO SCH (17:11)
[2023-04-14] MEDS: Acetaminophen 325 MG TAB PO PRN (17:11)
[2023-04-14] MEDS: HumaLOG 300 UNITS/3 ML VIAL SC PRN (17:14)
[2023-04-14 18:19] VITALS: BMI 38.0
[2023-04-14] MEDS ORDERED: Potassium Chloride 20 MEQ TAB PO SCH (20:00)
[2023-04-14] MEDS ORDERED: Vancomycin 2.5 GM in Sodium Chloride 0.9% 500 ML IVPB SCH (20:00)
[2023-04-14] MEDS: guaiFENesin/DM ER PO SCH (20:17)
[2023-04-14] MEDS: Enoxaparin 120 MG/0.8 ML SYRINGE SC SCH (20:41)
[2023-04-14] MEDS: Cefepime 2 GM in Sodium Chloride 0.9% 100 ML IVPB SCH (20:41)
[2023-04-14] MEDS: Insulin Glargine 30 UNITS/0.3 ML VIAL SC SCH (20:42)
[2023-04-15] MEDS: Benzonatate 100 MG CAP PO PRN (00:29)
[2023-04-15] MEDS ORDERED: Aquaphor 10 GM TUBE TOP PRN (02:23)
[2023-04-15 03:12] LABS: Legionella Urinary Ag Negative (Negative); Strep pneumo Urine Ag NEGATIVE (NEGATIVE)
[2023-04-15] MEDS: Sodium Chloride 0.9% 1,000 ML IV SCH (04:00)
[2023-04-15 05:13] LABS: #Monocytes 0.2 thou/uL (0.11-0.59); %Basophils 0.1 % (0.0-1.0); %Lymphocytes 5.2 % (21.0-51.0); %Monocytes 3.1 % (0.0-10.0); Hematocrit 37.6 % (42.0-52.0); Hemoglobin 12.7 g/dL (14.0-18.0); Mean Corpuscular HGB CONC 33.8 g/dL (32.0-36.0); Mean Corpuscular Hemoglobin 29.5 pg (27.0-31.0); Mean Corpuscular Volume 87.2 fl (78.0-98.0); Platelet Count 216 10x3/uL (130-400); RBC Distribution Width 12.9 % (11.5-14.5); Red Blood Cell (RBC) Count 4.31 mill/uL (4.70-6.10); White Blood Cell (WBC) Count 7.7 10x3/uL (4.8-10.8)
[2023-04-15 05:52] LABS: ALT (SGPT) 30 U/L (8-55); AST (SGOT) 21 U/L (5-34); Alkaline Phosphatase 76 U/L (40-110); Anion Gap 18 mmol/L (10-20); BUN (Urea Nitrogen) 12 mg/dL (8.4-25.7); Bilirubin, Total 0.6 mg/dL (0.2-1.2); Calc. Creatinine Clearance 204 mL/min (70-130); Calcium 7.7 mg/dL (7.8-10.44); Carbon Dioxide 16 mmol/L (22-29); Chloride 107 mmol/L (98-107); Estimated GFR 111; Globulin 3.3 g/dL (2.4-3.5); Glucose 254 mg/dL (70-105); Magnesium 1.8 mg/dL (1.6-2.6); Potassium 3.6 mmol/L (3.5-5.1); Protein, Total 6.3 g/dL (6.0-8.3); Sodium 137 mmol/L (136-145)
[2023-04-15] MEDS: Vancomycin (BATCH) 2 GM in Premix 1 BAG IVPB SCH ×2 (05:54→17:41)
[2023-04-15] MEDS: HumaLOG 300 UNITS/3 ML VIAL SC PRN ×4 (06:02→20:53)
[2023-04-15] MEDS: predniSONE 20 MG TAB PO SCH (08:06)
[2023-04-15] MEDS: Enoxaparin 120 MG/0.8 ML SYRINGE SC SCH ×2 (08:06→19:58)
[2023-04-15] MEDS: Amlodipine 10 MG TAB PO SCH (08:06)
[2023-04-15] MEDS: guaiFENesin/DM ER PO SCH ×2 (08:07→19:58)
[2023-04-15] MEDS: Insulin Glargine 30 UNITS/0.3 ML VIAL SC SCH ×2 (08:08→20:54)
[2023-04-15] MEDS: Carvedilol 25 MG TAB PO SCH ×2 (08:08→16:43)
[2023-04-15] MEDS: Cefepime 2 GM in Sodium Chloride 0.9% 100 ML IVPB SCH ×2 (08:09→19:58)
[2023-04-15] MEDS: Azithromycin 500 MG in Sodium Chloride 0.9% 250 ML 250 ML IVPB SCH (12:59)
[2023-04-15] MEDS: Ipratropium/Albuterol 3 ML NEB NEB PRN (19:34)
[2023-04-15] MEDS: Acetaminophen 325 MG TAB PO PRN (23:29)
[2023-04-16 06:04] LABS: Vancomycin, Trough 8.4 ug/mL
[2023-04-16] MEDS: Vancomycin (BATCH) 2 GM in Premix 1 BAG IVPB SCH ×3 (06:28→22:15)
[2023-04-16] MEDS: HumaLOG 300 UNITS/3 ML VIAL SC PRN ×3 (06:28→21:03)
[2023-04-16] MEDS ORDERED: Vancomycin (BATCH) 2 GM in Premix 1 BAG IVPB SCH (06:30)
[2023-04-16] MEDS: Carvedilol 25 MG TAB PO SCH ×2 (08:00→16:38)
[2023-04-16] MEDS: predniSONE 20 MG TAB PO SCH (08:00)
[2023-04-16] MEDS: Cefepime 2 GM in Sodium Chloride 0.9% 100 ML IVPB SCH ×2 (08:01→20:50)
[2023-04-16] MEDS: Amlodipine 10 MG TAB PO SCH (08:01)
[2023-04-16] MEDS: guaiFENesin/DM ER PO SCH ×2 (08:01→20:50)
[2023-04-16] MEDS: Apixaban 5 MG TAB PO SCH ×2 (08:01→20:50)
[2023-04-16] MEDS: Insulin Glargine 30 UNITS/0.3 ML VIAL SC SCH ×2 (08:02→21:05)
[2023-04-16] MEDS: Azithromycin 500 MG in Sodium Chloride 0.9% 250 ML 250 ML IVPB SCH (14:12)
[2023-04-16] MEDS: Benzonatate 100 MG CAP PO PRN (16:45)
[2023-04-16] MEDS: Ipratropium/Albuterol 3 ML NEB NEB PRN (17:01)
[2023-04-17] MEDS: Benzonatate 100 MG CAP PO PRN ×2 (00:37→21:30)
[2023-04-17 06:07] LABS: Vancomycin, Trough 21.3 ug/mL
[2023-04-17] MEDS: HumaLOG 300 UNITS/3 ML VIAL SC PRN ×4 (06:54→21:32)
[2023-04-17] MEDS ORDERED: Vancomycin (BATCH) 1.5 GM in Premix 1 BAG IVPB SCH (08:00)
[2023-04-17] MEDS: Carvedilol 25 MG TAB PO SCH ×2 (08:09→16:03)
[2023-04-17] MEDS: Amlodipine 10 MG TAB PO SCH (08:10)
[2023-04-17] MEDS: Hydrochlorothiazide 25 MG TAB PO SCH (08:10)
[2023-04-17] MEDS: Cefepime 2 GM in Sodium Chloride 0.9% 100 ML IVPB SCH ×2 (08:10→21:32)
[2023-04-17] MEDS: Apixaban 5 MG TAB PO SCH ×2 (08:10→21:31)
[2023-04-17] MEDS: guaiFENesin/DM ER PO SCH ×2 (08:10→21:30)
[2023-04-17] MEDS: Insulin Glargine 30 UNITS/0.3 ML VIAL SC SCH ×2 (08:11→21:31)
[2023-04-17 08:16] LABS: #Eosinphils 0.1 thou/uL (0.0-0.7); #Monocytes 0.8 thou/uL (0.11-0.59); #Neutrophils 4.3 thou/uL (1.40-6.50); %Basophils 0.2 % (0.0-1.0); %Lymphocytes 16.9 % (21.0-51.0); %Monocytes 12.3 % (0.0-10.0); %Neutrophils 69.1 % (42.0-75.0); Hematocrit 37.5 % (42.0-52.0); Mean Corpuscular HGB CONC 34.7 g/dL (32.0-36.0); Mean Corpuscular Hemoglobin 29.3 pg (27.0-31.0); Mean Corpuscular Volume 84.7 fl (78.0-98.0); Mean Platelet Volume 9.7 fL (7.4-10.4); Platelet Count 363 10x3/uL (130-400); RBC Distribution Width 12.8 % (11.5-14.5); Red Blood Cell (RBC) Count 4.43 mill/uL (4.70-6.10); White Blood Cell (WBC) Count 6.3 10x3/uL (4.8-10.8)
[2023-04-17] MEDS: Vancomycin (BATCH) 2 GM in Premix 1 BAG IVPB SCH (08:32)
[2023-04-17 08:36] LABS: Anion Gap 14 mmol/L (10-20); BUN (Urea Nitrogen) 10 mg/dL (8.4-25.7); Calc. Creatinine Clearance 223 mL/min (70-130); Calcium 7.4 mg/dL (7.8-10.44); Carbon Dioxide 21 mmol/L (22-29); Chloride 104 mmol/L (98-107); Estimated GFR 114; Glucose 217 mg/dL (70-105); Potassium 3.2 mmol/L (3.5-5.1); Sodium 136 mmol/L (136-145)
[2023-04-17] MEDS ORDERED: FLU VACC QS2023-24(6MOS UP)/PF 60 MCG/0.5 ML SYRINGE IM ONE (09:00)
[2023-04-17] MEDS: Azithromycin 500 MG in Sodium Chloride 0.9% 250 ML 250 ML IVPB SCH (12:55)
[2023-04-18 04:55] LABS: #Eosinphils 0.2 thou/uL (0.0-0.7); #Monocytes 0.5 thou/uL (0.11-0.59); #Neutrophils 3.5 thou/uL (1.40-6.50); %Basophils 0.4 % (0.0-1.0); %Eosinophils 3.3 % (0.0-10.0); %Lymphocytes 19.3 % (21.0-51.0); %Monocytes 9.4 % (0.0-10.0); %Neutrophils 66.8 % (42.0-75.0); Hematocrit 40.2 % (42.0-52.0); Hemoglobin 14.2 g/dL (14.0-18.0); Mean Corpuscular HGB CONC 35.3 g/dL (32.0-36.0); Mean Platelet Volume 9.7 fL (7.4-10.4); Platelet Count 360 10x3/uL (130-400); RBC Distribution Width 12.6 % (11.5-14.5); Red Blood Cell (RBC) Count 4.73 mill/uL (4.70-6.10); White Blood Cell (WBC) Count 5.2 10x3/uL (4.8-10.8)
[2023-04-18 05:29] LABS: Anion Gap 12 mmol/L (10-20); BUN (Urea Nitrogen) 11 mg/dL (8.4-25.7); Calc. Creatinine Clearance 220 mL/min (70-130); Calcium 7.7 mg/dL (7.8-10.44); Carbon Dioxide 25 mmol/L (22-29); Chloride 100 mmol/L (98-107); Estimated GFR 113; Glucose 226 mg/dL (70-105); Potassium 3.3 mmol/L (3.5-5.1); Sodium 134 mmol/L (136-145)
[2023-04-18] MEDS: HumaLOG 300 UNITS/3 ML VIAL SC PRN ×3 (05:34→22:55)
[2023-04-18] MEDS ORDERED: Potassium Bicarbonate/Cit Ac 20 MEQ TAB PO SCH (08:00)
[2023-04-18] MEDS: Carvedilol 25 MG TAB PO SCH ×2 (09:11→17:57)
[2023-04-18] MEDS: Cefepime 2 GM in Sodium Chloride 0.9% 100 ML IVPB SCH ×2 (09:12→23:03)
[2023-04-18] MEDS: Hydrochlorothiazide 25 MG TAB PO SCH (09:12)
[2023-04-18] MEDS: Amlodipine 10 MG TAB PO SCH (09:12)
[2023-04-18] MEDS: Apixaban 5 MG TAB PO SCH ×2 (09:12→22:54)
[2023-04-18] MEDS: guaiFENesin/DM ER PO SCH ×2 (09:12→22:54)
[2023-04-18] MEDS: Insulin Glargine 30 UNITS/0.3 ML VIAL SC SCH ×2 (09:13→22:55)
[2023-04-18 15:11] LABS: Anion Gap 12 mmol/L (10-20); BUN (Urea Nitrogen) 13 mg/dL (8.4-25.7); Calc. Creatinine Clearance 159 mL/min (70-130); Calcium 8.6 mg/dL (7.8-10.44); Carbon Dioxide 27 mmol/L (22-29); Chloride 97 mmol/L (98-107); Estimated GFR 103; Potassium 4.3 mmol/L (3.5-5.1); Sodium 132 mmol/L (136-145)
[2023-04-18 15:12] LABS: Anion Gap 12 mmol/L (10-20); BUN (Urea Nitrogen) 14 mg/dL (8.4-25.7); Calc. Creatinine Clearance 162 mL/min (70-130); Calcium 8.8 mg/dL (7.8-10.44); Carbon Dioxide 27 mmol/L (22-29); Chloride 97 mmol/L (98-107); Estimated GFR 103; Potassium 4.3 mmol/L (3.5-5.1); Sodium 132 mmol/L (136-145)
[2023-04-18] MEDS ORDERED: HumaLOG 300 UNITS/3 ML VIAL SC SCH ×2 (15:15→18:00)
[2023-04-18 15:16] LABS: Critical Call Chemistry NUR.LD2 AT 1515; Glucose 544 mg/dL (70-105); Glucose 545 mg/dL (70-105)
[2023-04-18] MEDS: Benzonatate 100 MG CAP PO PRN ×2 (17:57→22:54)
[2023-04-19 04:53] LABS: #Eosinphils 0.2 thou/uL (0.0-0.7); #Monocytes 0.5 thou/uL (0.11-0.59); #Neutrophils 3.9 thou/uL (1.40-6.50); %Basophils 0.5 % (0.0-1.0); %Eosinophils 3.4 % (0.0-10.0); %Lymphocytes 19.6 % (21.0-51.0); %Monocytes 9.1 % (0.0-10.0); Hematocrit 40.4 % (42.0-52.0); Hemoglobin 14.3 g/dL (14.0-18.0); Mean Corpuscular HGB CONC 35.4 g/dL (32.0-36.0); Mean Corpuscular Hemoglobin 31.3 pg (27.0-31.0); Mean Platelet Volume 9.9 fL (7.4-10.4); Platelet Count 369 10x3/uL (130-400); RBC Distribution Width 12.8 % (11.5-14.5); Red Blood Cell (RBC) Count 4.57 mill/uL (4.70-6.10); White Blood Cell (WBC) Count 5.9 10x3/uL (4.8-10.8)
[2023-04-19 04:54] LABS: Mean Corpuscular Volume 88.4 fl (78.0-98.0)
[2023-04-19 05:19] LABS: Anion Gap 11 mmol/L (10-20); BUN (Urea Nitrogen) 15 mg/dL (8.4-25.7); Calc. Creatinine Clearance 207 mL/min (70-130); Calcium 7.9 mg/dL (7.8-10.44); Carbon Dioxide 28 mmol/L (22-29); Chloride 102 mmol/L (98-107); Estimated GFR 111; Glucose 238 mg/dL (70-105); Potassium 3.5 mmol/L (3.5-5.1); Sodium 137 mmol/L (136-145)
[2023-04-19] MEDS: HumaLOG 300 UNITS/3 ML VIAL SC PRN ×2 (05:42→09:44)
[2023-04-19 07:25] VITALS: BP 130/99; TEMP 98.1
[2023-04-19] MEDS: Amlodipine 10 MG TAB PO SCH (08:23)
[2023-04-19] MEDS: Carvedilol 25 MG TAB PO SCH (08:24)
[2023-04-19] MEDS: Hydrochlorothiazide 25 MG TAB PO SCH (08:24)
[2023-04-19] MEDS: guaiFENesin/DM ER PO SCH (08:24)
[2023-04-19] MEDS: Insulin Glargine 30 UNITS/0.3 ML VIAL SC SCH (08:25)
[2023-04-19] MEDS: Cefepime 2 GM in Sodium Chloride 0.9% 100 ML IVPB SCH (08:25)
[2023-04-19] MEDS: Apixaban 5 MG TAB PO SCH (08:25)
[2023-04-23] MEDS ORDERED: Apixaban 5 MG TAB PO SCH (09:00)
== END 2023-04-19 10:30 | disposition home or self-care (01) | DRG 193 ==
LOC: SUATTDRO 09:55 → ERS 09:55 → OBSVTOIN 14:08 → 2SW 14:08
PROVIDERS: ADMIT Internal Medicine; ATTEND Hospitalist
DX: J11.08 Influenza due to unidentified influenza virus with specified pneumonia (principal); J96.01 Acute respiratory failure with hypoxia; I82.412 Acute embolism and thrombosis of left femoral vein; I82.432 Acute embolism and thrombosis of left popliteal vein; I82.442 Acute embolism and thrombosis of left tibial vein; E11.65 Type 2 diabetes mellitus with hyperglycemia; E87.6 Hypokalemia; E11.649 Type 2 diabetes mellitus with hypoglycemia without coma; J15.9 Unspecified bacterial pneumonia; I10 Essential (primary) hypertension; Z79.4 Long term (current) use of insulin; Z11.52 Encounter for screening for COVID-19; Z79.899 Other long term (current) drug therapy
CPT/HCPCS: 36415; 36416; 71045; 71275; 80048; 80053; 80202; 81001; 82010; 82805; 83036; 83605; 83735; 83880; 84145; 84484; 85025; 85379; 85610; 85730; 86140; 87040; 87081; 87449; 87899; 93005; 93306; 93970; 94640; 96361; 96365; 96366; 96368; 96372; 96375; J0456; J0692; J0696; J1100; J1650; J1815; J1885; J3370; J3490; J7030; J7050; J7512; J7620; Q9967

== ENCOUNTER 2024-01-03 01:21 | Emergency (ER) | payer SELFPAY ==
[2024-01-03 01:48] LABS: #Basophils 0.08 10x3/uL (0.0-0.2); #Eosinophils Less than 0.03 10x3/uL (0.0-0.7); %Basophils 0.7 % (0.0-1.0); %Eosinophils 0.1 % (0.0-10.0); %Lymphocytes 9.2 % (21.0-51.0); %Monocytes 4.2 % (0.0-10.0); %Neutrophils 85.4 % (42.0-75.0); Hemoglobin 15.1 g/dL (14.0-18.0); Mean Corpuscular HGB CONC 33.6 g/dL (32.0-36.0); Mean Corpuscular Hemoglobin 29.7 pg (27.0-31.0); Mean Corpuscular Volume 88.4 fL (78.0-98.0); Mean Platelet Volume 9.5 fL (7.4-10.4); Platelet Count 294 10x3/uL (130-400); RBC Distribution Width 12.2 % (11.5-14.5); Red Blood Cell (RBC) Count 5.09 mill/uL (4.70-6.10)
[2024-01-03] MEDS ORDERED: Ondansetron PF 4 MG/2 ML Vial ONE (02:19)
[2024-01-03 02:29] LABS: Bacteria/HPF None Seen HPF (None Seen); Bilirubin Negative (Negative); Blood, Urine Negative (Negative); CAUTI Indications for Culture Pelvic or flank pain; Clarity Clear (Clear); Glucose, Urine (Dipstick) Greater than 1000 mg/dL (Negative); Ketone, Urine 20 mg/dL (Negative); Leukocyte Negative Leu/uL (Negative); Nitrite Negative (Negative); Protein, Urine (Dipstick) Negative (Neg-Trace); RBC/HPF 0-3 HPF (0-3); Specific Gravity, Urine 1.008 (1.002-1.036); Squamous Epithelial None Seen HPF (0-3); Urobilinogen Normal mg/dL (Less than 2); WBC/HPF 0-3 HPF (0-3)
[2024-01-03 02:30] LABS: Urine Culture Reflex No No
[2024-01-03 02:32] LABS: Troponin I 0.011 ng/mL (< 0.028)
[2024-01-03] MEDS ORDERED: Morphine 4 MG/ML VIAL ONE (03:07)
[2024-01-03] MEDS ORDERED: Ketorolac Tromethamine 30 MG (1 mL) VIAL ONE (03:07)
[2024-01-03 03:19] LABS: ALT (SGPT) 27 U/L (8-55); AST (SGOT) 20 U/L (5-34); Albumin 3.8 g/dL (3.5-5.0); Alkaline Phosphatase 124 U/L (40-110); Anion Gap 19 mmol/L (10-20); BUN (Urea Nitrogen) 16 mg/dL (8.4-25.7); Bilirubin, Total 0.6 mg/dL (0.2-1.2); Calc. Creatinine Clearance 0 mL/min (70-130); Carbon Dioxide 20 mmol/L (22-29); Chloride 99 mmol/L (98-107); Estimated GFR 99; Globulin 2.9 g/dL (2.4-3.5); Glucose 295 mg/dL (70-105); Potassium 3.5 mmol/L (3.5-5.1); Protein, Total 6.7 g/dL (6.0-8.3); Sodium 134 mmol/L (136-145)
== END 2024-01-03 04:34 | disposition home or self-care (01) ==
LOC: ERS 01:21
DX: N13.2 Hydronephrosis with renal and ureteral calculous obstruction (principal); E11.65 Type 2 diabetes mellitus with hyperglycemia; E11.10 Type 2 diabetes mellitus with ketoacidosis without coma; I10 Essential (primary) hypertension; Z79.4 Long term (current) use of insulin; Z79.84 Long term (current) use of oral hypoglycemic drugs; Z79.899 Other long term (current) drug therapy
CPT/HCPCS: 36415; 36416; 71045; 74176; 80053; 81001; 82010; 84484; 85025; 93005; 94760; 96374; 96375; J1885; J2272; J2405